=== PATIENT | male | born 2000 | race Caucasian/White ===

== ENCOUNTER 2020-01-30 17:22 | Emergency (ER) | payer BC, OTHER ==
[~2020-01-30] VITALS: Ht 170.2 cm; Wt 70.3 kg
[~2020-01-30 17:22] MED LIST: ONDA4TAB6 PO
[2020-01-30] MEDS ORDERED: NO HOME MEDS (17:28)
[2020-01-30] MEDS ORDERED: normal saline 1000ML IV soln IVB ONE (17:40)
[2020-01-30] MEDS ORDERED: ondansetron/PF 4mg/2ml inj IV ONE (17:40)
[2020-01-30] MEDS ORDERED: morphine 4 MG/ML inj SYRINge IV ONE (17:40)
--- NOTE | 2020-01-30 18:24 | NUR ---
Pt returned from CT and Xray, Trauma Status called off at 182
[2020-01-30] MEDS ORDERED: HYDR-4383 PO (19:12)
[2020-01-30 19:45] VITALS: BP 108/63
== END 2020-01-30 19:41 | disposition home or self-care (01) ==
LOC: ER 17:23
DX: S80.211A Abrasion, right knee, initial encounter (principal); S70.211A Abrasion, right hip, initial encounter; S40.211A Abrasion of right shoulder, initial encounter; S50.811A Abrasion of right forearm, initial encounter; F17.200 Nicotine dependence, unspecified, uncomplicated; V29.88XA Motorcycle rider (driver) (passenger) injured in other specified transport accidents, initial encounter; Y93.55 Activity, bike riding; Y92.413 State road as the place of occurrence of the external cause; Y99.9 Unspecified external cause status
CPT/HCPCS: 70450; 71045; 72125; 73030; 73502; 73564; 73610; 96374; 96375; 99285; J2270; J2405; J7030